=== PATIENT | male | born 1990 | race Caucasian/White ===

== ENCOUNTER 2016-12-06 14:49 | Emergency (ER) | payer OTHER ==
[~2016-12-06] VITALS: Ht 165.1 cm; Wt 72.6 kg
[2016-12-06 17:21] LABS: HEMATOCRIT 45.6 % (42.0-52.0); HEMOGLOBIN 16.1 gm/dL (14.0-18.0); MCH 31.4 pg (26.0-34.0); MCHC 35.3 g/dL (28.0-37.0); MCV 88.9 fL (80.0-100.0); RBC 5.13 mil/uL (4.50-6.00); WBC 8.6 thou/uL (4.0-11.0)
[2016-12-06 17:30] LABS: CALCIUM 9.4 mg/dL (8.5-10.1); CREATININE 0.9 mg/dL (0.7-1.3); POTASSIUM 4.1 mmol/L (3.5-5.1)
[2016-12-06 17:35] LABS: PROTIME 10.1 Seconds (9.3-11.4)
[2016-12-06 19:34] VITALS: BP 138/78
== END 2016-12-06 19:35 | disposition short-term general hospital (02) ==
LOC: ER 14:49
PROVIDERS: Physician Assistant
DX: S61.012A Laceration without foreign body of left thumb without damage to nail, initial encounter (principal); F10.99 Alcohol use, unspecified with unspecified alcohol-induced disorder; Z23 Encounter for immunization; W27.8XXA Contact with other nonpowered hand tool, initial encounter; Y93.89 Activity, other specified; Y92.89 Other specified places as the place of occurrence of the external cause; Y99.0 Civilian activity done for income or pay